=== PATIENT | male | born 1945 | race Caucasian/White ===

== ENCOUNTER 2018-10-06 05:18 | Day surgery (SDC) | payer OTHER ==
[~2018-10-06 05:18] MED LIST: KEPPRA500 MG PO; METOPROLOL SUCC50 MG PO
[2018-10-06] MEDS ORDERED: PERCOCET 5-3251 EACH PO (08:31)
[2018-10-06] MEDS ORDERED: COLACE100 MG PO (08:31)
== END 2018-10-06 14:55 | disposition home or self-care (01) ==
LOC: CIR.AMB 05:18
DX: K64.8 Other hemorrhoids (principal)